=== PATIENT | male | born 1975 | race Caucasian/White ===

== ENCOUNTER 2022-08-05 21:35 | Inpatient (IN) | payer SELFPAY ==
[~2022-08-05] VITALS: Ht 175.3 cm; Wt 105.9 kg
[~2022-08-05 21:35] MED LIST: AMOXICILLIN875 MG PO; BACTRIM DS 8001 TAB PO; CEPHALEXIN500 M1 PO; FLAGYL500 MG PO; INDOCIN50 MG PO; NO HOME MEDICATIONS; RYBIX ODT50 MG PO; ZEBETA 5MG5 MG PO; ZESTRIL 5MG5 MG PO
[2022-08-05 22:42] LABS: HEMOGLOBIN 12.5 g/dl (13.5-18.0); MEAN CELL VOLUME 92 fl (80.0-100.0); MEAN CORPUSCULAR HEMOGLOBIN 31 pg (27-31); MEAN CORPUSCULAR HGB CONC 34 g/dl (33.0-37.0); MEAN PLATELET VOLUME 9.7 fl (7.4-10.4); PLATELET COUNT 324 K/mm3 (130-400); RED BLOOD COUNT 4.01 M/mm3 (4.20-5.60)
[2022-08-05 22:44] LABS: HEMATOCRIT 36.9 % (42.0-52.0)
[2022-08-05 22:52] LABS: PROTHROMBIN TIME 11.5 SECONDS (9.7-12.8)
[2022-08-05 22:59] LABS: BAND 1 % (0-10); LYMPHOCYTE 39 % (20.0-51.0); METAMYELOCYTE 3 % (0-0); NEUTROPHILS 52 % (42.0-75.2); PLATELET ESTIMATE NORMAL (NORMAL)
[2022-08-05 23:01] LABS: ALBUMIN 2.7 gm/dL (3.5-5.0); BILIRUBIN,TOTAL 0.2 mg/dL (0.2-1.2); CALCIUM 7.9 mg/dL (8.4-10.2); CREATININE, serum 1.02 mg/dL (0.72-1.25); MAGNESIUM 2.1 mg/dL (1.6-2.6); PHOSPHOROUS 4.1 mg/dL (2.3-4.7); POTASSIUM 3.3 mmol/L (3.5-4.5); TOTAL PROTEIN 6.5 gm/dL (6.2-8.1)
[2022-08-05 23:02] LABS: COLLECTION METHOD CLEAN CATCH; PH 7.5 (5.0-8.5); URINE APPEARANCE Clear (CLEAR/HAZY); URINE BLOOD Negative (NEGATIVE); URINE COLOR Yellow (YELLOW); URINE GLUCOSE Negative (NEGATIVE); URINE KETONE Negative (NEGATIVE); URINE NITRATE Negative (NEGATIVE); URINE PROTEIN(semi-quant) Negative (NEGATIVE); URINE UROBILINOGEN 0.2 E.U/dL (0.2-1.0)
[2022-08-05 23:03] LABS: MUCOUS Present (NOT PRESENT); SQUAMOUS EPITHELIAL 0-2 /hpf (0-10); URINE BACTERIA None Seen /hpf (NONE SEEN); URINE RBC 0-2 /hpf (0-2); URINE WBC 0-2 /hpf (0-2)
[2022-08-06] VITALS (7 sets, daily range): BP systolic 125–166; BP diastolic 62–89; PULSE 67–89; TEMP 97.7–98.7
--- NOTE | 2022-08-06 03:13 | NUR ---
PT ARRIVED TO ROOM 349 ASSESSMENT AND ADMISSION COMPLETE AT THIS TIME. PT DENIES PAIN AT THIS TIME, PT DOES HAVE SOME ABD DISTENTION AND THE ABD IS FIRM. PT HAS SOME LAP SITES FROM PROCEDURE ON THE . PT RESTING CALMLY IN BED AT THIS TIME IV FLUIDS INFUSING
[2022-08-06 05:12] LABS: TRICYCLIC ANTIDEPRESS URINE NEGATIVE
[2022-08-06 06:23] LABS: HEMOGLOBIN 11.7 g/dl (13.5-18.0); MEAN CELL VOLUME 93 fl (80.0-100.0); MEAN CORPUSCULAR HEMOGLOBIN 30 pg (27-31); MEAN CORPUSCULAR HGB CONC 32 g/dl (33.0-37.0); MEAN PLATELET VOLUME 10.1 fl (7.4-10.4); PLATELET COUNT 325 K/mm3 (130-400); REDCELL DISTRIBUTION WIDTH-CV 13.1 % (11.5-14.5)
[2022-08-06 06:30] LABS: HEMATOCRIT 36.2 % (42.0-52.0)
[2022-08-06 06:37] LABS: CALCIUM 7.6 mg/dL (8.4-10.2); CREATININE, serum 0.87 mg/dL (0.72-1.25); POTASSIUM 3.7 mmol/L (3.5-4.5)
[2022-08-06 07:50] LABS: EOSINOPHIL 5 % (0-4); LYMPHOCYTE 35 % (20.0-51.0); METAMYELOCYTE 5 % (0-0); MYELOCYTE 2 % (0-0); NEUTROPHILS 47 % (42.0-75.2); PLATELET ESTIMATE NORMAL (NORMAL)
--- NOTE | 2022-08-06 08:25 | NUR ---
PATIENT ALERT AND ORIENTED X4. VSS. PATIENT DENIES ANY PAIN. PARTIAL ASSESSMENT PERFORMED. PATIENT SIGNIFICANTLY DROWSY, BUT AROUSABLE. IV TO LEFT AC WITH SLOW ZOSYN RUNNING. PATIENT ON POTASSIUM PROTOCOL. PATIENT DENIES ANY BLOOD STOOLS SINCE BEING ADMITTED HERE.
--- NOTE | 2022-08-06 08:28 | NUR ---
CRITICAL DDIMER REPORTED TO DR. ALICIA
--- NOTE | 2022-08-06 09:50 | NUR ---
SW met with the patient to discuss discharge plan. The patient lives in [place] with his parents: Godfrey and Beth Marie (ph#[phone]). He reports independence with ADLs and has a walking stick. The patient's PCP is Dr. Joe in [place] and he receives his medications from [facility]. He shares that he applied for Medicaid and disability and was first denied, but then appealed it. He believes that he was just approved for Medicaid. SW consulted Financial Counseling. The patient shares that he is not working right now, but his parents help pay for his meds and bills. The patient does not have a DPOA-HC. He states that he is not and has two children. An 18-year old son, that he states, "does not like him." His son lives in [place], [place]. He has a 15-year old daughter, but he states that his name is not on the certificate. The daughter lives with the father that is on her certificate in [place]. The patient plans to return home with his parents upon discharge. He shares that his mother just bought him a two bedroom house, but due to his medication condition, he plans on returning back to his parents house for now. The patient's UDS at [facility] was positive for THC, methamphetamines, and amphetamines. MATT addressed this with the patient. The patient states that he last used two weeks ago. He states that he is wanting treatment and that he has already been in contact with [facility], due to him being self pay. He states that he has been approved for inpatient treatment at [facility], but is just awaiting a bed now. They will call him when they have a bed. *Discharge plan: home with parents*
[2022-08-07 04:17] VITALS: BP 149/87; PULSE 86; TEMP 98.6
--- NOTE | 2022-08-07 07:32 | NUR ---
Received shift report from the night nurseDavide RN.
[2022-08-07 08:16] VITALS: BP 159/74; PULSE 86; TEMP 98.3
--- NOTE | 2022-08-07 08:41 | NUR ---
Patient laying bed watching TV. Patient denies abdominal discomfort and bloody stools. 4 abdominal lap site dry and intact. No drainage noted at the incision site. Am meds administered, and instructed patient to order breakfast. Patient has no needs or concerns at this time. Family member at the bedside.
[2022-08-07] MEDS ORDERED: AMOXICILLIN 8751 TAB PO (10:44)
[2022-08-07] MEDS ORDERED: PRINIVIL5 MG PO (10:45)
--- NOTE | 2022-08-07 11:39 | NUR ---
Discharge instruction given, patient verbalized understanding. INT discontinued and patient escorted to the front entrance.
== END 2022-08-07 11:27 | disposition home or self-care (01) | DRG 920 ==
LOC: COL.ER 21:35 → SURG 08-06 01:30
PROVIDERS: Emergency Medicine; Nurse Practitioner Family; ADMIT Internal Medicine
DX: K91.870 Postprocedural hematoma of a digestive system organ or structure following a digestive system procedure (principal); J90 Pleural effusion, not elsewhere classified; K62.5 Hemorrhage of anus and rectum; J98.11 Atelectasis; I10 Essential (primary) hypertension; F15.10 Other stimulant abuse, uncomplicated; E78.5 Hyperlipidemia, unspecified; Z20.822 Contact with and (suspected) exposure to COVID-19; K21.9 Gastro-esophageal reflux disease without esophagitis; N20.0 Calculus of kidney; R00.1 Bradycardia, unspecified; J45.909 Unspecified asthma, uncomplicated; F17.210 Nicotine dependence, cigarettes, uncomplicated; Y83.8 Other surgical procedures as the cause of abnormal reaction of the patient, or of later complication, without mention of misadventure at the time of the procedure; D72.829 Elevated white blood cell count, unspecified; D64.9 Anemia, unspecified; E87.6 Hypokalemia; F19.10 Other psychoactive substance abuse, uncomplicated; Y92.89 Other specified places as the place of occurrence of the external cause; Z90.49 Acquired absence of other specified parts of digestive tract; Z88.5 Allergy status to narcotic agent
CPT/HCPCS: C9113; J0360; J2270; J2543; J3480; J7030; J7120; Q9967